=== PATIENT | female | born 1945 | race Caucasian/White ===

== ENCOUNTER → 2016-09-21 19:41 | Outpatient (CLI) | payer MEDICARE, BC | END | disposition home or self-care (01) | LOC: D.MAMMO 15:30 | DX: Z12.31 Encounter for screening mammogram for malignant neoplasm of breast (principal) ==

== ENCOUNTER 2017-12-17 17:19 | Inpatient (IN) | payer MEDICARE, BC ==
[~2017-12-17] VITALS: Ht 157.5 cm; Wt 79.4 kg
[2017-12-17 17:50] LABS: BASOPHILS 0.2 % (0-2); EOSINOPHILS 0 % (0-7); HEMATOCRIT 37.2 % (36.0-48.0); HEMOGLOBIN 12.6 g/dL (12-16); IMMATURE GRANULOCYTES 0.3 % (0-5); LYMPHOCYTES 1.1 % (15-50); MCH 29.1 pg (26.0-34.0); MCHC 33.9 g/dL (31.0-37.0); MCV 85.9 fL (80.0-100.0); MEAN PLATELET VOLUME 9.2 fL (7.4-10.4); MONOCYTES 1.7 % (2-11); NEUTROPHILS 96.7 % (40-80); PLATELET COUNT 235 10x3/uL (130-400); RBC 4.33 10x6/uL (4.00-5.40); RDW 13.8 % (11.5-14.5); WBC 12.2 10x3/uL (4.8-10.8)
[2017-12-17 18:07] LABS: APPEARANCE HAZY (CLEAR); BILIRUBIN NEGATIVE (NEGATIVE); COLOR YELLOW (YELLOW); GLUCOSE NEGATIVE (NEGATIVE); KETONE MODERATE mg/dL (NEGATIVE); NITRITE NEGATIVE (NEGATIVE); PROTEIN TRACE mg/dL (NEGATIVE); SPECIFIC GRAVITY 1.015 (1.005-1.020); UROBILINOGEN NORMAL (NORMAL)
[2017-12-17 18:08] LABS: EPITHELIAL CELLS 0-5 /hpf (0-5); RED CELLS - URINE OCC /hpf (0-5)
[2017-12-17 18:09] LABS: BACTERIA MODERATE /hpf (NONE SEEN)
[2017-12-17 18:11] LABS: ALBUMIN 3.3 g/dL (3.4-5.0); ANION GAP 14.2 mmol/L (8-16); BILIRUBIN - TOTAL 0.4 mg/dL (0.2-1.3); CALCIUM 8.9 mg/dL (8.5-10.1); CARBON DIOXIDE 24.6 mmol/L (21.0-32.0); CREATININE - SERUM 1.1 mg/dL (0.6-1.3); POTASSIUM - SERUM 3.8 mmol/L (3.5-5.1); PROTEIN - SERUM 7.6 g/dL (6.4-8.2)
[2017-12-17] MEDS ORDERED: GLUCOPHAGE1000 MG PO (20:56)
[2017-12-17] MEDS ORDERED: GLIPIZIDE10 MG PO (20:57)
[2017-12-18 02:59] VITALS: BP 103/61; BMI 32.1
[2017-12-18 07:39] VITALS: BP 102/63
[2017-12-18 10:05] VITALS: BMI 32.0
[2017-12-18 11:14] VITALS: BP 105/68
[2017-12-18 14:41] VITALS: BP 108/65
[2017-12-18 20:00] VITALS: BP 123/51
[2017-12-19] VITALS: BP 133/70
[2017-12-19 04:00] VITALS: BP 120/66
[2017-12-19 07:04] LABS: BASOPHILS 0.2 % (0-2); EOSINOPHILS 0 % (0-7); HEMOGLOBIN 10.5 g/dL (12-16); IMMATURE GRANULOCYTES 0.4 % (0-5); LYMPHOCYTES 7.1 % (15-50); MCH 27.9 pg (26.0-34.0); MCHC 32.8 g/dL (31.0-37.0); MCV 85.1 fL (80.0-100.0); MEAN PLATELET VOLUME 10.2 fL (7.4-10.4); MONOCYTES 4.9 % (2-11); NEUTROPHILS 87.4 % (40-80); RBC 3.76 10x6/uL (4.00-5.40); RDW 14.2 % (11.5-14.5)
[2017-12-19 07:05] LABS: PLATELET COUNT 183 10x3/uL (130-400); WBC 8.4 10x3/uL (4.8-10.8)
[2017-12-19 07:26] LABS: ALBUMIN 2.3 g/dL (3.4-5.0); BILIRUBIN - TOTAL 0.22 mg/dL (0.2-1.3); CALCIUM 7.9 mg/dL (8.5-10.1); CARBON DIOXIDE 22.2 mmol/L (21.0-32.0); CREATININE - SERUM 0.9 mg/dL (0.6-1.3); POTASSIUM - SERUM 3.2 mmol/L (3.5-5.1); PROTEIN - SERUM 6.2 g/dL (6.4-8.2)
[2017-12-19 08:25] VITALS: BP 133/77
[2017-12-19 12:21] VITALS: BP 130/72
[2017-12-19 15:29] VITALS: BP 105/48
[2017-12-19 20:00] VITALS: BP 128/76
[2017-12-20] VITALS: BP 133/79
[2017-12-20 04:00] VITALS: BP 169/76
[2017-12-20 04:23] LABS: BASOPHILS 0.2 % (0-2); EOSINOPHILS 0.3 % (0-7); HEMATOCRIT 31.5 % (36.0-48.0); HEMOGLOBIN 10.5 g/dL (12-16); IMMATURE GRANULOCYTES 0.2 % (0-5); LYMPHOCYTES 8.3 % (15-50); MCH 28.2 pg (26.0-34.0); MCHC 33.3 g/dL (31.0-37.0); MCV 84.5 fL (80.0-100.0); MEAN PLATELET VOLUME 9.7 fL (7.4-10.4); MONOCYTES 8.1 % (2-11); NEUTROPHILS 82.9 % (40-80); PLATELET COUNT 191 10x3/uL (130-400); RBC 3.73 10x6/uL (4.00-5.40); RDW 14.2 % (11.5-14.5); WBC 8.6 10x3/uL (4.8-10.8)
[2017-12-20 04:38] LABS: ALBUMIN 2.2 g/dL (3.4-5.0); ANION GAP 12.9 mmol/L (8-16); BILIRUBIN - TOTAL 0.3 mg/dL (0.2-1.3); CALCIUM 7.8 mg/dL (8.5-10.1); CREATININE - SERUM 0.9 mg/dL (0.6-1.3); POTASSIUM - SERUM 3.9 mmol/L (3.5-5.1); PROTEIN - SERUM 6.3 g/dL (6.4-8.2)
[2017-12-20 08:02] VITALS: BP 128/71
[2017-12-20 12:56] VITALS: BP 132/77
[2017-12-20 15:08] VITALS: BP 124/73
[2017-12-20 20:00] VITALS: BP 147/73
[2017-12-21] VITALS: BP 120/72
[2017-12-21 04:00] VITALS: BP 130/72
[2017-12-21 04:41] LABS: BASOPHILS 0.3 % (0-2); HEMATOCRIT 31.6 % (36.0-48.0); HEMOGLOBIN 10.5 g/dL (12-16); LYMPHOCYTES 15.8 % (15-50); MCH 28.2 pg (26.0-34.0); MCHC 33.2 g/dL (31.0-37.0); MCV 84.7 fL (80.0-100.0); MONOCYTES 12.9 % (2-11); RBC 3.73 10x6/uL (4.00-5.40); RDW 14.2 % (11.5-14.5); WBC 7.4 10x3/uL (4.8-10.8)
[2017-12-21 04:56] LABS: PLATELET COUNT 248 10x3/uL (130-400)
[2017-12-21 05:08] LABS: ALBUMIN 2.1 g/dL (3.4-5.0); ALKALINE PHOSPHATASE 84 U/L (46-116); BILIRUBIN - TOTAL 0.36 mg/dL (0.2-1.3); CALC OSMOLALITY 281 mosm/kg (275-300); CALCIUM 7.9 mg/dL (8.5-10.1); CARBON DIOXIDE 23.5 mmol/L (21.0-32.0); CHLORIDE - SERUM 107 mmol/L (98-107); CREATININE - SERUM 0.7 mg/dL (0.6-1.3); GLUCOSE 145 mg/dL (74-106); PROTEIN - SERUM 6.2 g/dL (6.4-8.2); SODIUM 141 mmol/L (136-145); UREA NITROGEN 8 mg/dL (7-18); eGFR NON AFRICAN AMERICAN 88 mL/min (90-120)
[2017-12-21 05:09] LABS: ALT (SGPT) 34 U/L (10-68); POTASSIUM - SERUM 3.3 mmol/L (3.5-5.1)
[2017-12-21 07:49] VITALS: BP 126/74
[2017-12-21 08:02] LABS: INR 1.11 (0.85-1.17); PROTIME 13.9 SECONDS (11.6-15.0)
[2017-12-21 10:40] LABS: GLUCOSE - CSF 91 MG/DL (40-75); PROTEIN - CSF 33 MG/DL (12-60)
[2017-12-21 10:52] LABS: APPEARANCE - CSF COLORLESS; RBC - CSF 0 cmm (0-0)
[2017-12-21 11:22] VITALS: BP 159/75
[2017-12-21 15:22] VITALS: BP 146/70
[2017-12-21 20:00] VITALS: BP 149/84
[2017-12-22 04:00] VITALS: BP 143/79
[2017-12-22 07:02] LABS: BASOPHILS 0.6 % (0-2); EOSINOPHILS 3.2 % (0-7); HEMATOCRIT 31.2 % (36.0-48.0); HEMOGLOBIN 10.5 g/dL (12-16); IMMATURE GRANULOCYTES 2.3 % (0-5); LYMPHOCYTES 20.6 % (15-50); MCH 28.3 pg (26.0-34.0); MCHC 33.7 g/dL (31.0-37.0); MCV 84.1 fL (80.0-100.0); MEAN PLATELET VOLUME 9.9 fL (7.4-10.4); MONOCYTES 11.4 % (2-11); NEUTROPHILS 61.9 % (40-80); RBC 3.71 10x6/uL (4.00-5.40); RDW 14.3 % (11.5-14.5); WBC 7.1 10x3/uL (4.8-10.8)
[2017-12-22 07:09] LABS: PLATELET COUNT 298 10x3/uL (130-400)
[2017-12-22 07:22] LABS: ALKALINE PHOSPHATASE 86 U/L (46-116); ALT (SGPT) 29 U/L (10-68); BILIRUBIN - TOTAL 0.25 mg/dL (0.2-1.3); CALC OSMOLALITY 283 mosm/kg (275-300); CALCIUM 7.7 mg/dL (8.5-10.1); CARBON DIOXIDE 24.9 mmol/L (21.0-32.0); CHLORIDE - SERUM 108 mmol/L (98-107); CREATININE - SERUM 0.7 mg/dL (0.6-1.3); GLUCOSE 156 mg/dL (74-106); POTASSIUM - SERUM 3.7 mmol/L (3.5-5.1); SODIUM 142 mmol/L (136-145); UREA NITROGEN 6 mg/dL (7-18); eGFR NON AFRICAN AMERICAN 88 mL/min (90-120)
[2017-12-22 07:59] VITALS: BP 165/87
[2017-12-22] MEDS ORDERED: PROTONIX40 MG PO (10:58)
[2017-12-22] MEDS ORDERED: PHENAZOPYRIDIN100 MG PO (10:58)
[2017-12-22] MEDS ORDERED: LEVAQUIN750 MG PO (10:59)
[2017-12-22 11:35] VITALS: BP 147/90
[2017-12-22 15:33] VITALS: BP 135/76
[2017-12-22 20:00] VITALS: BP 138/69
[2017-12-23] VITALS: BP 137/77
[2017-12-23 04:00] VITALS: BP 163/75
[2017-12-23 05:59] LABS: BASOPHILS 1.1 % (0-2); EOSINOPHILS 5.8 % (0-7); HEMATOCRIT 32.1 % (36.0-48.0); HEMOGLOBIN 10.5 g/dL (12-16); IMMATURE GRANULOCYTES 4.5 % (0-5); LYMPHOCYTES 24.2 % (15-50); MCH 27.7 pg (26.0-34.0); MCHC 32.7 g/dL (31.0-37.0); MCV 84.7 fL (80.0-100.0); MEAN PLATELET VOLUME 9.9 fL (7.4-10.4); MONOCYTES 10.8 % (2-11); NEUTROPHILS 53.6 % (40-80); PLATELET COUNT 347 10x3/uL (130-400); RBC 3.79 10x6/uL (4.00-5.40); RDW 14.4 % (11.5-14.5); WBC 6.4 10x3/uL (4.8-10.8)
[2017-12-23 06:27] LABS: ALKALINE PHOSPHATASE 83 U/L (46-116); ALT (SGPT) 28 U/L (10-68); BILIRUBIN - TOTAL 0.21 mg/dL (0.2-1.3); CALC OSMOLALITY 284 mosm/kg (275-300); CALCIUM 7.8 mg/dL (8.5-10.1); CARBON DIOXIDE 26.3 mmol/L (21.0-32.0); CHLORIDE - SERUM 108 mmol/L (98-107); CREATININE - SERUM 0.7 mg/dL (0.6-1.3); GLUCOSE 151 mg/dL (74-106); POTASSIUM - SERUM 3.2 mmol/L (3.5-5.1); SODIUM 143 mmol/L (136-145); UREA NITROGEN 5 mg/dL (7-18); eGFR NON AFRICAN AMERICAN 88 mL/min (90-120)
[2017-12-23 08:35] VITALS: BP 156/72
[2017-12-23 11:42] VITALS: BP 142/68
[2017-12-23 12:12] VITALS: Ht 157.5 cm; Wt 79.4 kg
== END 2017-12-23 15:15 | disposition home or self-care (01) | DRG 689 ==
LOC: D.ER 17:19 → D.M2 19:12 → D.EDHOLD 19:12 → D.M2 19:28
PROVIDERS: Emergency Medicine; Radiology Vascular & Interventional Radiology
PROC: 009U3ZZ Drainage of Spinal Canal, Percutaneous Approach (ICD-10-PCS; principal; 2017-12-21)
PROC: B01B1ZZ Fluoroscopy of Spinal Cord using Low Osmolar Contrast (ICD-10-PCS; 2017-12-21)
DX: N39.0 Urinary tract infection, site not specified (principal); G93.41 Metabolic encephalopathy; E88.89 Other specified metabolic disorders; N13.30 Unspecified hydronephrosis; B96.4 Proteus (mirabilis) (morganii) as the cause of diseases classified elsewhere; D64.9 Anemia, unspecified; E87.6 Hypokalemia; E83.42 Hypomagnesemia; E11.9 Type 2 diabetes mellitus without complications

== ENCOUNTER → 2018-01-11 12:31 | Outpatient (CLI) | payer MEDICARE, BC ==
[2017-12-23 12:12] VITALS: BMI 32.0
[~2018-01-11 12:31] MED LIST: GLIPIZIDE10 MG PO; GLUCOPHAGE1000 MG PO; LEVAQUIN750 MG PO; PHENAZOPYRIDIN100 MG PO; PROTONIX40 MG PO
== END | disposition home or self-care (01) ==
LOC: D.NM 12:31
DX: N13.30 Unspecified hydronephrosis (principal)

== ENCOUNTER → 2018-08-15 18:18 | Outpatient (CLI) | payer MEDICARE, BC ==
[2017-12-23 12:12] VITALS: BMI 32.0
[~2018-08-15 18:18] MED LIST changes: -GLIPIZIDE10 MG PO; +GLUCOTROL 5 MG T5 MG PO
== END | disposition home or self-care (01) ==
LOC: D.LABREF 18:18
DX: R31.9 Hematuria, unspecified (principal)

== ENCOUNTER 2018-08-30 05:45 | Day surgery (SDC) | payer MEDICARE, BC ==
[2018-08-29 09:33] LABS: HEMATOCRIT 40.8 % (36.0-48.0); HEMOGLOBIN 13.5 g/dL (12-16); MCH 28.6 pg (26.0-34.0); MCHC 33.1 g/dL (31.0-37.0); MCV 86.4 fL (80.0-100.0); MEAN PLATELET VOLUME 9.9 fL (7.4-10.4); RBC 4.72 10x6/uL (4.00-5.40); RDW 14.2 % (11.5-14.5); WBC 5.1 10x3/uL (4.8-10.8)
[2018-08-29 09:41] LABS: ANION GAP 14.3 mmol/L (8-16); CALCIUM 9.3 mg/dL (8.5-10.1); CARBON DIOXIDE 27.1 mmol/L (21.0-32.0); CREATININE - SERUM 0.9 mg/dL (0.6-1.3); POTASSIUM - SERUM 4.4 mmol/L (3.5-5.1)
[~2018-08-30] VITALS: Ht 152.4 cm; Wt 82.1 kg
[2018-08-30 06:16] VITALS: BP 108/58; Ht 152.4 cm; Wt 82.1 kg
--- NOTE | 2018-08-30 09:08 | NUR ---
[address] YOON. PROCEDURE FINDINGS DISCUSSED WITH PATIENT. Araceli VILLATORO R.N.
--- NOTE | 2018-08-30 09:21 | OP ---
PATIENT NAME: SHERRIE BRYANT MEDICAL RECORD: [id number] :49 LOCATION:[facility] ADMISSION DATE: SURGEON: ALEKSANDER YOON MD DATE OF OPERATION: 08/30/2018 SURGEON: Aleksander Yoon MD ANESTHESIA: TIVA by Pramod Avelar CRNA. DIAGNOSIS: Gross hematuria. PROCEDURE: Cystoscopy. FINDINGS: Single ureteral orifices bilaterally. No bladder tumors. Inflamed bladder. BLOOD LOSS: None. CLINICAL HISTORY: This is a 73-year-old female, who has a complaint of painless gross hematuria. She had a workup for hematuria including urine cytology, which was benign. She had a CT scan of the abdomen and pelvis on 12/17/2017, which showed fatty liver and otherwise no renal masses. She comes today to have cystoscopy performed to complete the hematuria workup. SHE IS ALLERGIC TO CODEINE. 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 DESCRIPTION OF PROCEDURE: The patient was given IV sedation. She was placed in the lithotomy position and prepped and draped. A 17-Turkish cystoscope with 30-degree lens was used for visualization. Findings are as outlined above. The bladder was then emptied through the cystoscope sheath and the scope was removed. TRANSINT:[id number] Voice Confirmation ID: [id number] DOCUMENT ID: [id number] ALEKSANDER YOON MD at 0921 CC: [id number] DICTATION DATE: 08/30/18 0846 BILINGUAL SPEECH LANGUAGE PATHOLOGIST: 08/30/18 0903 [facility] [address] [id number]
--- NOTE | 2018-08-30 10:32 | NUR ---
0955 DRESSED. AWAKE & ALERT. GIVEN DISCHARGE INFORMATION INCLUDING: MED REC, POST CYSTOSCOPY D/C INSTRUCTIONS, & MC D/C INSTRUCTIONS. PT VOICED UNDERSTANDING. TO PRIVATE CAR PER WHEELCHAIR BY THIS NURSE. HOME WITH FRIEND, NICHOLAS. Araceli VILLATORO R.N.
== END 2018-08-30 09:55 | disposition home or self-care (01) ==
LOC: D.OPS 05:45 → D.PAN 08:00 → D.OPS 08:05 → D.PAN 12:00
PROVIDERS: Anesthesiology
DX: R31.0 Gross hematuria (principal); K76.0 Fatty (change of) liver, not elsewhere classified; Z88.5 Allergy status to narcotic agent; Z01.812 Encounter for preprocedural laboratory examination

== ENCOUNTER 2019-01-12 11:00 | Outpatient (CLI) | payer MEDICARE, BC ==
[2018-08-30 06:16] VITALS: BMI 35.4
== END 2019-01-12 11:30 | disposition home or self-care (01) ==
LOC: D.MAMMO 11:00
PROVIDERS: ATTEND Emergency Medicine
DX: Z12.31 Encounter for screening mammogram for malignant neoplasm of breast (principal)

== ENCOUNTER 2019-02-07 10:00 | Outpatient (CLI) | payer MEDICARE, BC ==
[2018-08-30 06:16] VITALS: BMI 35.4
== END 2019-02-07 11:00 | disposition home or self-care (01) ==
LOC: D.MAMMO 10:00
PROVIDERS: ATTEND Emergency Medicine
DX: R92.8 Other abnormal and inconclusive findings on diagnostic imaging of breast (principal)

== ENCOUNTER 2019-08-11 09:00 | Outpatient (CLI) | payer MEDICARE, BC ==
[2018-08-30 06:16] VITALS: BMI 35.4
== END 2019-08-11 10:00 | disposition home or self-care (01) ==
LOC: D.MAMMO 09:00
PROVIDERS: ATTEND Emergency Medicine
DX: R92.8 Other abnormal and inconclusive findings on diagnostic imaging of breast (principal)

== ENCOUNTER 2020-03-22 18:08 | Outpatient (CLI) | payer MEDICARE, BC ==
[2018-08-30 06:16] VITALS: BMI 35.4
== END 2020-03-22 23:59 | disposition home or self-care (01) ==
LOC: D.MAMMO 18:08
PROVIDERS: ATTEND Nurse Practitioner
DX: Z12.31 Encounter for screening mammogram for malignant neoplasm of breast (principal)